=== PATIENT | male | born 1980 | race Caucasian/White ===

== ENCOUNTER 2017-05-07 00:03 | Emergency (ER) | payer SELFPAY ==
[2017-05-07] MEDS ORDERED: IBUPROFEN 600 MG TABLET ONE (00:32)
[2017-05-07 00:51] LABS: RAPID GROUP A STREP NEGATIVE (NEGATIVE)
== END 2017-05-07 01:29 | disposition home or self-care (01) ==
LOC: EDH 00:03
DX: B34.9 Viral infection, unspecified (principal); Z79.899 Other long term (current) drug therapy; Z72.0 Tobacco use
CPT/HCPCS: 87804; 87880

== ENCOUNTER 2019-06-08 08:53 | Emergency (ER) | payer OTHER | END 2019-06-08 10:03 | disposition home or self-care (01) | LOC: EDH 08:53 | DX: R10.9 Unspecified abdominal pain (principal); I10 Essential (primary) hypertension; Z72.0 Tobacco use | CPT/HCPCS: 99281 ==

== ENCOUNTER 2020-06-04 02:02 | Emergency (ER) | payer SELFPAY ==
[2020-06-04] MEDS ORDERED: SODIUM CHLORIDE 0.9% 1000ML 2,000 ML IV ONE (02:37)
[2020-06-04 02:41] LABS: BASOPHILS % (AUTO) 0.4 % (0.0-5.0); EOSINOPHILS % (AUTO) 0.6 % (0.0-8.0); HEMATOCRIT 51.1 % (42-54); LYMPHOCYTES % (AUTO) 13.8 % (21.0-51.0); MEAN CORPUSCULAR HEMOGLOBIN 30.2 pg (27.0-33.0); MEAN CORPUSCULAR HGB CONC 35.2 g/dL (32.0-36.0); MEAN CORPUSCULAR VOLUME 85.6 fL (79-99); MONOCYTES % (AUTO) 2.6 % (3.0-13.0); NEUTROPHILS % (AUTO) 80.8 % (40.0-77.0); PLATELET COUNT (AUTO) 190 K/uL (130-400); RED BLOOD CELL COUNT(AUTO) 5.97 MIL/uL (4.50-6.20); RED CELL DISTRIBUTION WIDTH 12.2 % (11.0-15.5); WHITE BLOOD COUNT (AUTO) 11.5 K/uL (4.8-10.8)
[2020-06-04 02:52] LABS: CARBON DIOXIDE 28 mmol/L (21-32); CHLORIDE 101 mmol/L (101-111); CREATININE 1.5 mg/dL (0.5-1.5); GLOMERULAR FILTR. RATE CALC 55 mL/min (>60); GLUCOSE,RANDOM 140 mg/dL (70-105); POTASSIUM 4.1 mmol/L (3.5-5.1); SODIUM SERUM 140 mmol/L (136-145); UREA NITROGEN, BLOOD 16 mg/dL (7-18)
[2020-06-04 02:56] LABS: ALANINE AMINOTRANSFERASE 106 U/L (12-78); ALBUMIN 4.4 g/dL (3.5-5.0); ASPARTATE AMINOTRANSFERASE 161 U/L (10-37); BILIRUBIN,TOTAL 0.8 mg/dL (0.2-1.0); TOTAL PROTEIN, SERUM 8.5 g/dL (6.0-8.3)
[2020-06-04 02:57] LABS: APPEARANCE,URINE Clear (CLEAR); BILIRUBIN,URINE Negative (NEGATIVE); COLOR,URINE Yellow (YELLOW); GLUCOSE, URINE (UA) Negative (NEGATIVE); KETONES,URINE Negative (NEGATIVE); LEUKOCYTE ESTERASE ,URINE Negative (NEGATIVE); NITRATE,URINE Negative (NEGATIVE); OCCULT BLOOD,URINE Negative (NEGATIVE); PROTEIN,URINE Negative (NEGATIVE)
[2020-06-04 02:59] LABS: ACETAMINOPHEN < 1 mcg/mL (10-29); ALCOHOL, BLOOD < 3 mg/dL (0-10); SALICYLATE < 2.8 mg/dL (2.8-20.0)
[2020-06-04 03:05] LABS: AMPHET/METH SCREEN,URINE NEGATIVE (NEGATIVE); BARBITURATE SCREEN, URINE NEGATIVE (NEGATIVE); BENZODIAZEPINES SCREEN,URINE NEGATIVE (NEGATIVE); OPIATE SCREEN,URINE NEGATIVE (NEGATIVE); PHENCYCLIDINE SCREEN,URINE NEGATIVE (NEGATIVE)
[2020-06-04 04:12] LABS: COCAINE SCREEN,URINE POSITIVE (NEGATIVE)
[2020-06-04 04:13] LABS: CANNABINOID SCREEN,URINE POSITIVE (NEGATIVE)
== END 2020-06-04 08:24 | disposition home or self-care (01) ==
LOC: EDH 02:02
DX: T42.4X2A Poisoning by benzodiazepines, intentional self-harm, initial encounter (principal); T46.5X2A Poisoning by other antihypertensive drugs, intentional self-harm, initial encounter; I10 Essential (primary) hypertension; Z72.0 Tobacco use; Y92.89 Other specified places as the place of occurrence of the external cause
CPT/HCPCS: 36415; 80053; 80305; 81003; 85025; 93005; 96360; 96361; 99284; G0481; J7030

== ENCOUNTER 2020-11-24 00:55 | Emergency (ER) | payer SELFPAY ==
[~2020-11-24] VITALS: Ht 188 cm; Wt 97.5 kg
[2020-11-24] MEDS ORDERED: IPRATROPIUM/ALBUTEROL SULFATE 3 ML SOLUTION IH ONE ×3 (01:30→02:30)
[2020-11-24] MEDS ORDERED: AUD IH (02:46)
[2020-11-24] MEDS ORDERED: ALBUHFA IH (02:46)
[2020-11-24] MEDS ORDERED: PRED20TA3 PO (02:46)
[2020-11-24 02:51] VITALS: BP 124/74
[2020-11-24] MEDS ORDERED: PREDNISONE 20 MG TABLET PO ONE (03:00)
== END 2020-11-24 02:58 | disposition home or self-care (01) ==
LOC: EDH 00:55
DX: J20.9 Acute bronchitis, unspecified (principal); I10 Essential (primary) hypertension; R06.2 Wheezing; F17.200 Nicotine dependence, unspecified, uncomplicated; Z79.899 Other long term (current) drug therapy
CPT/HCPCS: 71045; 94640

== ENCOUNTER 2021-01-18 17:20 | Emergency (ER) | payer OTHER ==
[~2021-01-18] VITALS: Ht 188 cm; Wt 95.3 kg
[~2021-01-18 17:20] MED LIST: ALBUHFA IH; AUD IH; PRED20TA3 PO
[2021-01-18] MEDS ORDERED: ALBUTEROL 0.083% 2.5 MG/3 ML INH IH ONE ×2 (17:40→17:55)
[2021-01-18] MEDS ORDERED: IPRATROPIUM/ALBUTEROL SULFATE 3 ML SOLUTION IH ONE ×2 (17:41→18:00)
[2021-01-18 17:45] LABS: BASOPHILS % (AUTO) 0.9 % (0.0-5.0); EOSINOPHILS % (AUTO) 6.4 % (0.0-8.0); HEMATOCRIT 51.7 % (42-54); LYMPHOCYTES % (AUTO) 27.1 % (21.0-51.0); MEAN CORPUSCULAR HEMOGLOBIN 29.8 pg (27.0-33.0); MEAN CORPUSCULAR VOLUME 87.5 fL (79-99); MONOCYTES % (AUTO) 6.7 % (3.0-13.0); NEUTROPHILS % (AUTO) 57.5 % (40.0-77.0); PLATELET COUNT (AUTO) 175 K/uL (130-400); RED BLOOD CELL COUNT(AUTO) 5.91 MIL/uL (4.50-6.20); WHITE BLOOD COUNT (AUTO) 9.7 K/uL (4.8-10.8)
[2021-01-18] MEDS ORDERED: SOLU-MEDROL 125MG VIAL ONE (17:53)
[2021-01-18 17:54] LABS: CREATININE 1.6 mg/dL (0.5-1.5); POTASSIUM 3.5 mmol/L (3.5-5.1)
[2021-01-18] MEDS ORDERED: LORAZEPAM 2 MG/ML 1 ML VIAL ONE (17:54)
[2021-01-18] MEDS ORDERED: LORAZEPAM 2 MG/ML 1 ML VIAL IVP ONE (18:00)
[2021-01-18] MEDS ORDERED: ALBUTEROL 0.083% 2.5 MG/3 ML INH IH SCH (18:00)
[2021-01-18] MEDS ORDERED: 0.9%NACL 1000ML 1,000 ML IV ONE (18:00)
[2021-01-18] MEDS ORDERED: SOLU-MEDROL 125MG VIAL IVP ONE (18:00)
[2021-01-18 18:01] LABS: BILIRUBIN,TOTAL 1.1 mg/dL (0.2-1.0); TOTAL PROTEIN, SERUM 7.7 g/dL (6.0-8.3)
[2021-01-18] MEDS ORDERED: PRED20TA3 PO (19:32)
[2021-01-18] MEDS ORDERED: ACET-2247 PO (19:32)
[2021-01-18] MEDS ORDERED: AMOX-429 PO (19:32)
[2021-01-18] MEDS ORDERED: CYCL10TA16 PO (19:32)
[2021-01-18] MEDS ORDERED: FLUT1DIS IH (19:32)
[2021-01-18] MEDS ORDERED: ALBU8.5H8 IH (19:32)
[2021-01-18 19:52] VITALS: BP 159/96
[2021-01-18] MEDS ORDERED: ALBU1.252 IH (20:07)
== END 2021-01-18 20:14 | disposition home or self-care (01) ==
LOC: EDH 17:20
DX: J20.9 Acute bronchitis, unspecified (principal); J45.901 Unspecified asthma with (acute) exacerbation; I10 Essential (primary) hypertension; N28.9 Disorder of kidney and ureter, unspecified; Z79.899 Other long term (current) drug therapy; Z79.51 Long term (current) use of inhaled steroids; Z79.52 Long term (current) use of systemic steroids
CPT/HCPCS: 36415; 71045; 80053; 84484; 85025; 86140; 93005; 94640 ×3; 96361; 96374; 96375; 99285; J2060; J2930

== ENCOUNTER 2022-01-02 20:15 | Emergency (ER) | payer OTHER ==
[~2022-01-02] VITALS: Ht 188 cm; Wt 98.5 kg
[~2022-01-02 20:15] MED LIST changes: +ACET-2247 PO; +ALBU1.252 IH; +ALBU8.5H8 IH; +AMOX-429 PO; +BENZ1LOZ83 MM; +BUDE0.5A8 IH; +CYCL10TA16 PO; +D-ME118S47 PO; +FLUT1DIS IH; +NICO-649 TD
[2022-01-02 20:49] LABS: BASOPHILS % (AUTO) 0.5 % (0.0-5.0); EOSINOPHILS % (AUTO) 3.2 % (0.0-8.0); HEMATOCRIT 47.5 % (42-54); LYMPHOCYTES % (AUTO) 10.5 % (21.0-51.0); MEAN CORPUSCULAR HEMOGLOBIN 29.8 pg (27.0-33.0); MEAN CORPUSCULAR HGB CONC 35.6 g/dL (32.0-36.0); MEAN CORPUSCULAR VOLUME 83.8 fL (79-99); MONOCYTES % (AUTO) 8.8 % (3.0-13.0); NEUTROPHILS % (AUTO) 75.5 % (40.0-77.0); PLATELET COUNT (AUTO) 125 K/uL (130-400); RED BLOOD CELL COUNT(AUTO) 5.67 MIL/uL (4.50-6.20); WHITE BLOOD COUNT (AUTO) 9.3 K/uL (4.8-10.8)
[2022-01-02 20:59] LABS: CREATININE 1.5 mg/dL (0.5-1.5); POTASSIUM 3.6 mmol/L (3.5-5.1)
[2022-01-02] MEDS ORDERED: HYDRALAZINE 20MG/ML VIAL IV ONE (21:00)
[2022-01-02] MEDS ORDERED: IPRATROPIUM/ALBUTEROL SULFATE 3 ML SOLUTION IH ONE ×2 (21:00→22:00)
[2022-01-02] MEDS ORDERED: IBUPROFEN 800 MG TAB PO ONE (21:00)
[2022-01-02 21:08] LABS: TOTAL PROTEIN, SERUM 7.9 g/dL (6.0-8.3)
[2022-01-02] MEDS ORDERED: OSEL75 PO (21:28)
[2022-01-02] MEDS ORDERED: IBUP-1493 PO (21:28)
[2022-01-02] MEDS ORDERED: 0.9%NACL 1000ML 1,500 ML IV ONE (22:00)
[2022-01-02] MEDS ORDERED: LABETALOL 20MG SYG IV ONE (22:00)
[2022-01-02] MEDS ORDERED: 0.9%NACL 1000ML 2,000 ML IV ONE (22:00)
[2022-01-02] MEDS ORDERED: HALOPERIDOL INJ 5 MG/ML VIAL IV SCH (22:00)
[2022-01-02] MEDS ORDERED: METOCLOPRAMIDE 10 MG TABLET PO ONE (22:30)
[2022-01-02] MEDS ORDERED: DiphenhydrAMINE HCL 50 MG/ML VIAL IV ONE (22:30)
[2022-01-02] MEDS ORDERED: KETOROLAC 30MG VIAL (30MG/ML) IVP ONE (22:30)
[2022-01-03 00:02] VITALS: BP 143/93
[2022-01-03] MEDS ORDERED: MORPHINE 4 MG SYG IVP ONE ×2 (00:30)
== END 2022-01-03 01:00 | disposition home or self-care (01) ==
LOC: EDH 20:15
DX: J10.1 Influenza due to other identified influenza virus with other respiratory manifestations (principal); G43.909 Migraine, unspecified, not intractable, without status migrainosus; I10 Essential (primary) hypertension; Z20.822 Contact with and (suspected) exposure to COVID-19; J45.909 Unspecified asthma, uncomplicated; Z79.899 Other long term (current) drug therapy
CPT/HCPCS: 99285; 96374; 96375 ×2; 96361; 70450; 71045; 87635; 84484; 80053; 85025; 87040 ×2; 87880; 87804 ×2; 36415; 93005; 94640 ×2; C9803; J1200; J7030 ×2; J1630; J0360; J1885; J2270